=== PATIENT | female | born 1975 | race Caucasian/White ===

== ENCOUNTER → 2023-12-14 | Outpatient (CLI) | payer OTHER, SELFPAY ==
--- NOTE | 2023-12-14 17:05 | RAD_ITS ---
INDICATION: wrist strain EXAMINATION/TECHNIQUE: X-RAY - RIGHT XR Wrist Min 3 Views 3 VIEWS COMPARISON: No relevant prior comparison study available FINDINGS: SOFT TISSUES: No soft tissue swelling or gas. No radiopaque foreign body. BONES/JOINTS: There is a deformity within the distal waist of the scaphoid visualized on single image. Normal alignment. Preservation of the joint space.. No sclerotic or destructive changes observed. RAD/Wrist min 3 Views IMPRESSION: Indeterminate deformity within the distal scaphoid, concerning for a fracture, recommend dedicated scaphoid view for further evaluation. Electronically Signed: Tressa Higgins MD at 17:23 EDT ,
== END | disposition home or self-care (01) ==
LOC: MTRAD 17:05
PROVIDERS: Referring Provider Physician Assistant Surgical; Visit Provider Physician Assistant Surgical
DX: S66.919A Strain of unspecified muscle, fascia and tendon at wrist and hand level, unspecified hand, initial encounter (principal)
CPT/HCPCS: 73110